=== PATIENT | female | born 1990 | race Caucasian/White ===

== ENCOUNTER 2018-03-23 10:51 | Emergency (ER) | payer BC, OTHER ==
[2018-03-23 10:55] VITALS: BP 132/75; PULSE 87; RESP 16; TEMP 98.2
[2018-03-23] MEDS ORDERED: LIDOCAINE VISCOUS 2% 15 ML CUP MUCOUS MEM ONE (11:07)
[2018-03-23] MEDS ORDERED: PENICILLIN G BENZATHINE 1,200,000 UNIT/2 ML SYRINGE IM STA (11:08)
[2018-03-23] MEDS ORDERED: IBUPROFEN 600 MG TAB PO STA (11:09)
--- NOTE | 2018-03-23 11:13 | ED ---
ENT HPI - General Chief complaint: ENT Stated complaint: Dx strep, not getting better Time Seen by Provider: 03/23/18 10:58 Source: patient, RN notes reviewed Mode of arrival: ambulatory Limitations: no limitations - History of Present Illness Initial comments: 27-year-old female presented emergency from chief complaint of sore throat. Patient diagnosed with strep yesterday. Patient states that it is too painful to tolerate. Patient states that she did have a strep screen which was positive. Patient has not been taking Motrin though she states that that she's been using Chloraseptic spray and Tylenol. She reports fevers when it first started no recent fever. Denies any difficulty swallowing other painful. Patient denies runny nose, headache, dizziness, neck pain. - Related Data Home Medications Medication Instructions Recorded Confirmed Cui-Xapa-Kawsm Acid 1 each PO DAILY 02/06/14 02/21/14 [-U Capsule (formulary)] Previous Rx's Medication Instructions Recorded Ibuprofen [Motrin] 600 mg PO Q8HR PRN #30 tab 03/23/18 Lidocaine Viscous 2% [Xylocaine 5 - 10 ml MUCOUS MEM Q4HR #120 ml 03/23/18 Viscous] Allergies Allergy/AdvReac Type Severity Reaction Status Date / Time No Known Allergies Allergy Verified 03/23/18 10:55 Review of Systems ROS Statement: Those systems with pertinent positive or pertinent negative responses have been documented in the HPI. ROS Other: All systems not noted in ROS Statement are negative. Past Medical History Past Medical History: No Reported History History of Any Multi-Drug Resistant Organisms: None Reported Past Surgical History: Cholecystectomy Past Anesthesia/Blood Transfusion Reactions: No Reported Reaction Past Psychological History: No Psychological Hx Reported Smoking Status: Current every day smoker Past Alcohol Use History: None Reported Past Drug Use History: None Reported - Past Family History Mother Family Medical History: Hypertension Father Family Medical History: Diabetes Mellitus General Exam Limitations: no limitations General appearance: alert, in no apparent distress Head exam: Present: atraumatic, normocephalic, normal inspection Eye exam: Present: normal appearance, PERRL, EOMI. Absent: scleral icterus, conjunctival injection, periorbital swelling ENT exam: Present: mucous membranes moist, TM's normal bilaterally, normal external ear exam. Absent: normal oropharynx (Erythematous edematous tonsils with exudates) Neck exam: Present: normal inspection, full ROM, lymphadenopathy. Absent: tenderness, meningismus Respiratory exam: Present: normal lung sounds bilaterally. Absent: respiratory distress, wheezes, rales, rhonchi, stridor Cardiovascular Exam: Present: regular rate, normal rhythm, normal heart sounds. Absent: systolic murmur, diastolic murmur, rubs, gallop, clicks Course Vital Signs 03/23/18 10:53 Temperature 98.2 F Pulse Rate 87 Respiratory 16 Rate Blood Pressure 132/75 O2 Sat by Pulse 97 Oximetry Medical Decision Making - Medical Decision Making 27-year-old female presents emergency department for sore throat uncontrolled pain with [id number]'s. Patient will be started on ibuprofen, viscous lidocaine and was given IM pen G. Disposition Clinical Impression: Streptococcal sore throat Disposition: HOME SELF-CARE Condition: Stable Instructions: Strep Throat (ED) Additional Instructions: Please return to the Emergency Department if symptoms worsen or any other concerns. Prescriptions: Ibuprofen [Motrin] 600 mg PO Q8HR PRN #30 tab PRN Reason: Pain Lidocaine Viscous 2% [Xylocaine Viscous] 5 - 10 ml MUCOUS MEM Q4HR #120 ml Is patient prescribed a controlled substance at d/c from ED?: No Referrals: None,Stated [Primary Care Provider] - 1-2 days Time of Disposition: 11:12
== END 2018-03-23 11:55 | disposition home or self-care (01) ==
LOC: EC 10:51
DX: J02.0 Streptococcal pharyngitis (principal); F17.200 Nicotine dependence, unspecified, uncomplicated
CPT/HCPCS: 99282; 96372; J0561

== ENCOUNTER 2019-01-17 07:05 | Emergency (ER) | payer OTHER ==
[2019-01-17 07:13] VITALS: BP 146/87; PULSE 69; RESP 18; TEMP 98
--- NOTE | 2019-01-17 07:34 | ED ---
General Adult HPI - General Chief complaint: Skin/Abscess/Foreign Body Stated complaint: Hemorrhoid Time Seen by Provider: 01/17/19 07:22 Source: patient, RN notes reviewed Mode of arrival: ambulatory Limitations: no limitations - History of Present Illness Initial comments: Patient is a pleasant 28-year-old female presenting to the emergency department with concern for hemorrhoids. Patient has had discomfort progressive over the past 4-5 days. No bleeding. Discomfort is moderate. Patient has used cream without much improvement of symptoms. No abdominal pain. No other concerns. - Related Data Previous Rx's Medication Instructions Recorded Hydrocortisone [Cortaid 1%] 1 applic TOPICAL TID #42 gm 01/17/19 Allergies Allergy/AdvReac Type Severity Reaction Status Date / Time No Known Allergies Allergy Verified 03/23/18 11:22 Review of Systems ROS Statement: Those systems with pertinent positive or pertinent negative responses have been documented in the HPI. ROS Other: All systems not noted in ROS Statement are negative. Constitutional: Denies: fever Eyes: Denies: eye pain ENT: Denies: ear pain Respiratory: Denies: cough Cardiovascular: Denies: chest pain Endocrine: Denies: fatigue Gastrointestinal: Reports: as per HPI. Denies: abdominal pain Genitourinary: Denies: dysuria Musculoskeletal: Denies: back pain Skin: Denies: rash Past Medical History Past Medical History: No Reported History History of Any Multi-Drug Resistant Organisms: None Reported Past Surgical History: Cholecystectomy Past Anesthesia/Blood Transfusion Reactions: No Reported Reaction Past Psychological History: No Psychological Hx Reported Smoking Status: Current every day smoker Past Alcohol Use History: None Reported Past Drug Use History: None Reported - Past Family History Mother Family Medical History: Hypertension Father Family Medical History: Diabetes Mellitus General Exam Limitations: no limitations General appearance: alert, in no apparent distress Head exam: Present: atraumatic Eye exam: Present: normal appearance Respiratory exam: Present: normal lung sounds bilaterally Cardiovascular Exam: Present: regular rate, normal rhythm GI/Abdominal exam: Present: soft. Absent: tenderness Rectal exam: Present: hemorrhoids (Enlarged hemorrhoid in the 3 o'clock position, approximate 1.5 cm.), other (Nurse Marychuy standing by.) Neurological exam: Present: alert Psychiatric exam: Present: normal affect, normal mood Skin exam: Present: normal color Course Vital Signs 01/17/19 07:09 Temperature 98.0 F Pulse Rate 69 Respiratory 18 Rate Blood Pressure 146/87 O2 Sat by Pulse 100 Oximetry Disposition Clinical Impression: Hemorrhoid Disposition: HOME SELF-CARE Condition: Stable Instructions (If sedation given, give patient instructions): Hemorrhoids (ED) Additional Instructions: Please follow-up with surgical the next day or 2 for recheck. Return for uncontrolled bleeding, worsening symptoms or other concerns. Use [id number] stool softener such as Colace. Make sure to buy 1 without a laxative as this could cause diarrhea. Prescriptions: Hydrocortisone [Cortaid 1%] 1 applic TOPICAL TID #42 gm Is patient prescribed a controlled substance at d/c from ED?: No Referrals: Sloan Sadler MD [STAFF PHYSICIAN] - 1-2 days Kenia Jenkins MD [STAFF PHYSICIAN] - 1-2 days Time of Disposition: 07:34
[2019-01-17] MEDS ORDERED: ACET/COD 300 MG/30 MG STARTER PACK 6 TAB BTL PO STA (07:35)
== END 2019-01-17 07:42 | disposition home or self-care (01) ==
LOC: EC 07:05
DX: K64.9 Unspecified hemorrhoids (principal); F17.200 Nicotine dependence, unspecified, uncomplicated
CPT/HCPCS: 99282

== ENCOUNTER → 2024-12-06 | Outpatient (CLI) | payer OTHER ==
--- NOTE | 2024-12-06 16:40 | US ---
EXAMINATION TYPE: US kidneys/renal and bladder DATE OF EXAM: 12/06/2024 COMPARISON: NONE CLINICAL INDICATION: Female, 34 years old with history of R31.9 HEMATURIA, UNSPECIFIED; microscopic h ematuria, no other issues TECHNIQUE: Grayscale imaging of the bilateral kidneys and urinary bladder: FINDINGS: EXAM MEASUREMENTS: Right Kidney: 8.9 x 3.9 x 4.4 cm Left Kidney: 9.5 x 4.7 x 5.7 cm Right Kidney: No hydronephrosis or masses seen Left Kidney: No hydronephrosis or masses seen Bladder: wnl- not fully distended There is no evidence for hydronephrosis at this point in time. No nephrolithiasis is seen. No erick s are identified. Corticomedullary differentiation is maintained bilaterally. The urinary bladder is underdistended limiting evaluation. IMPRESSION: No hydronephrosis or nephrolithiasis. [facility], , 12/06/2024 4:38 PM
== END | disposition home or self-care (01) ==
LOC: RADUSWWP 16:11
PROVIDERS: ATTEND Family Medicine
DX: R31.9 Hematuria, unspecified (principal)
CPT/HCPCS: 76770